=== PATIENT | female | born 1995 | race Two or more races ===

== ENCOUNTER → 2019-02-26 | Outpatient (CLI) | payer OTHER ==
[~2019-02-26] VITALS: Ht 152.4 cm; Wt 75.3 kg
== END | disposition home or self-care (01) ==
LOC: ECT 11:03
DX: F32.3 Major depressive disorder, single episode, severe with psychotic features (principal); F41.1 Generalized anxiety disorder; Z79.899 Other long term (current) drug therapy

== ENCOUNTER 2019-02-28 04:47 | Outpatient (RCR) | payer OTHER ==
[~2019-02-28] VITALS: Ht 153 cm; Wt 75.3 kg
[2019-02-28] MEDS ORDERED: SUMAtriptan 6mg/0.5ml Inj SUBQ ONE ×2 (04:48→06:00)
[2019-02-28] MEDS ORDERED: Methohexital Sodium 500mg Vial IVP ONE (04:48)
[2019-02-28] MEDS ORDERED: Ketorolac 60mg Inj IM ONE (04:48)
[2019-02-28] MEDS ORDERED: Midazolam 2mg/2ml Inj ONE ×2 (04:48→06:00)
[2019-02-28] MEDS ORDERED: NS 500ML ONE ×2 (04:48→06:00)
[2019-02-28] MEDS ORDERED: Succinylcholine 20mg/ml 10ml vial ONE ×2 (04:48→06:00)
[2019-02-28] MEDS ORDERED: Methohexital Sodium Syr 100mg/10ml IVP ONE (06:00)
[2019-02-28 09:29] VITALS: BP 123/95
[2019-02-28 09:43] VITALS: BP 129/84
[2019-02-28 09:48] VITALS: BP 123/65
[2019-02-28 09:53] VITALS: BP 122/63
[2019-02-28 09:58] VITALS: BP 125/71
[2019-02-28 11:21] VITALS: BP 123/95
[2019-03-02] MEDS ORDERED: Methohexital Sodium Syr 100mg/10ml IVP ONE (06:00)
[2019-03-02] MEDS ORDERED: NS 500ML ONE (06:00)
[2019-03-02] MEDS ORDERED: Ketorolac 30mg Inj ONE (06:00)
[2019-03-02] MEDS ORDERED: SUMAtriptan 6mg/0.5ml Inj SUBQ ONE (06:00)
[2019-03-02] MEDS ORDERED: Succinylcholine 20mg/ml 10ml vial ONE (06:00)
[2019-03-02] MEDS ORDERED: Midazolam 2mg/2ml Inj ONE (06:00)
[2019-03-02 08:57] VITALS: BP 117/76
[2019-03-02 09:10] VITALS: BP 130/75
[2019-03-02 09:15] VITALS: BP 120/46
[2019-03-02 09:20] VITALS: BP 120/54
[2019-03-02 09:25] VITALS: BP 118/79
[2019-03-05] MEDS ORDERED: NS 500ML ONE ×2 (08:00→09:00)
[2019-03-05] MEDS ORDERED: Methohexital Sodium Syr 100mg/10ml IVP ONE ×2 (08:00→09:00)
[2019-03-05] MEDS ORDERED: Ketorolac 60mg Inj IM ONE (08:00)
[2019-03-05] MEDS ORDERED: SUMAtriptan 6mg/0.5ml Inj SUBQ ONE (08:00)
[2019-03-05] MEDS ORDERED: Midazolam 2mg/2ml Inj ONE (08:00)
[2019-03-05] MEDS ORDERED: Succinylcholine 20mg/ml 10ml vial ONE ×2 (08:00→09:00)
[2019-03-05 09:45] VITALS: BP 115/68
[2019-03-05 09:59] VITALS: BP 134/73
[2019-03-05 10:04] VITALS: BP 126/57
[2019-03-05 10:09] VITALS: BP 129/54
[2019-03-05 10:14] VITALS: BP 124/58
[2019-03-07] MEDS ORDERED: Ketorolac 60mg Inj IM ONE (09:00)
[2019-03-07] MEDS ORDERED: Methohexital Sodium Syr 100mg/10ml IVP ONE (09:00)
[2019-03-07] MEDS ORDERED: NS 500ML ONE (09:00)
[2019-03-07] MEDS ORDERED: Midazolam 2mg/2ml Inj ONE (09:00)
[2019-03-07] MEDS ORDERED: Succinylcholine 20mg/ml 10ml vial ONE (09:00)
[2019-03-07] MEDS ORDERED: SUMAtriptan 6mg/0.5ml Inj SUBQ ONE (09:00)
[2019-03-07 09:37] VITALS: BP 110/69
[2019-03-07 09:55] VITALS: BP 135/73
[2019-03-07 10:00] VITALS: BP 136/77
[2019-03-07 10:05] VITALS: BP 125/63
[2019-03-07 10:10] VITALS: BP 119/55
[2019-03-09 09:16] VITALS: BP 108/70
[2019-03-09 09:35] VITALS: BP 116/82
[2019-03-09 09:40] VITALS: BP 119/70
[2019-03-09 09:45] VITALS: BP 114/64
[2019-03-09 09:50] VITALS: BP 117/66
[2019-03-12] MEDS ORDERED: NS 500ML ONE (06:00)
[2019-03-12] MEDS ORDERED: Midazolam 2mg/2ml Inj ONE (06:00)
[2019-03-12] MEDS ORDERED: Ketorolac 60mg Inj IM ONE (06:00)
[2019-03-12] MEDS ORDERED: SUMAtriptan 6mg/0.5ml Inj SUBQ ONE (06:00)
[2019-03-12] MEDS ORDERED: Methohexital Sodium Syr 100mg/10ml IVP ONE (06:00)
[2019-03-12] MEDS ORDERED: Succinylcholine 20mg/ml 10ml vial ONE (06:00)
[2019-03-12 09:54] VITALS: BP 108/69
[2019-03-12 10:05] VITALS: BP 136/68
[2019-03-12 10:10] VITALS: BP 126/67
[2019-03-12 10:15] VITALS: BP 116/67
[2019-03-12 10:20] VITALS: BP 116/72
[2019-03-13] MEDS ORDERED: NS 500ML ONE (06:00)
[2019-03-13] MEDS ORDERED: Midazolam 2mg/2ml Inj ONE (06:00)
[2019-03-13] MEDS ORDERED: Ketorolac 60mg Inj IM ONE (06:00)
[2019-03-13] MEDS ORDERED: Methohexital Sodium Syr 100mg/10ml IVP ONE (06:00)
[2019-03-13] MEDS ORDERED: SUMAtriptan 6mg/0.5ml Inj SUBQ ONE (06:00)
[2019-03-13] MEDS ORDERED: Succinylcholine 20mg/ml 10ml vial ONE (06:00)
[2019-03-14] MEDS ORDERED: NS 500ML ONE (06:00)
[2019-03-14] MEDS ORDERED: Midazolam 2mg/2ml Inj ONE (06:00)
[2019-03-14] MEDS ORDERED: Ketorolac 60mg Inj IM ONE (06:00)
[2019-03-14] MEDS ORDERED: Succinylcholine 20mg/ml 10ml vial ONE (06:00)
[2019-03-14] MEDS ORDERED: Methohexital Sodium Syr 100mg/10ml IVP ONE (06:00)
[2019-03-14] MEDS ORDERED: SUMAtriptan 6mg/0.5ml Inj SUBQ ONE (06:00)
[2019-03-14 09:57] VITALS: BP 111/60
[2019-03-14 10:15] VITALS: BP 126/68
[2019-03-14 10:20] VITALS: BP 126/68
[2019-03-14 10:25] VITALS: BP 120/45
[2019-03-14 10:30] VITALS: BP 124/63
== END 2019-03-14 | disposition home or self-care (01) ==
LOC: ECT 04:47
DX: F32.3 Major depressive disorder, single episode, severe with psychotic features (principal)
CPT/HCPCS: 90870; J0330; J1885; J2250; J3030; J3490; J7040

== ENCOUNTER 2019-03-16 09:35 | Outpatient (RCR) | payer OTHER ==
[~2019-03-16] VITALS: Ht 152.4 cm; Wt 75.3 kg
[2019-03-16 09:15] VITALS: BP 107/65
[2019-03-16 09:30] VITALS: BP 129/72
[2019-03-16 09:35] VITALS: BP 126/79
[2019-03-16] MEDS ORDERED: SUMAtriptan 6mg/0.5ml Inj SUBQ ONE ×2 (09:36)
[2019-03-16] MEDS ORDERED: NS 500ML ONE ×2 (09:36)
[2019-03-16] MEDS ORDERED: Succinylcholine 20mg/ml 10ml vial ONE ×2 (09:36)
[2019-03-16] MEDS ORDERED: Methohexital Sodium Syr 100mg/10ml IVP ONE ×2 (09:36)
[2019-03-16] MEDS ORDERED: Midazolam 2mg/2ml Inj ONE ×2 (09:36)
[2019-03-16] MEDS ORDERED: Ketorolac 60mg Inj IM ONE ×2 (09:36)
[2019-03-16 09:40] VITALS: BP 131/65
[2019-03-16 09:45] VITALS: BP 122/67
[2019-03-19] MEDS ORDERED: Ketorolac 30mg Inj ONE (06:00)
[2019-03-19] MEDS ORDERED: Midazolam 2mg/2ml Inj ONE (06:00)
[2019-03-19] MEDS ORDERED: SUMAtriptan 6mg/0.5ml Inj SUBQ ONE (06:00)
[2019-03-19] MEDS ORDERED: Methohexital Sodium Syr 100mg/10ml IVP ONE (06:00)
[2019-03-19] MEDS ORDERED: NS 500ML ONE (06:00)
[2019-03-19] MEDS ORDERED: Succinylcholine 20mg/ml 10ml vial ONE (06:00)
[2019-03-19 09:22] VITALS: BP 110/63
[2019-03-19 09:40] VITALS: BP 126/67
[2019-03-19 09:45] VITALS: BP 131/72
[2019-03-19 09:50] VITALS: BP 139/86
[2019-03-19 09:55] VITALS: BP 134/72
[2019-03-23 09:16] VITALS: BP 101/59
[2019-03-23 09:29] VITALS: BP 128/73
[2019-03-23 09:34] VITALS: BP 127/72
[2019-03-23 09:39] VITALS: BP 122/72
[2019-03-23 09:44] VITALS: BP 125/63
[2019-03-30 08:35] VITALS: BP 110/68
[2019-03-30 08:55] VITALS: BP_SYST 128; BP_SYST 137; BP_DIAS 72; BP_DIAS 77
[2019-03-30 09:00] VITALS: BP 130/84
[2019-03-30 09:05] VITALS: BP 135/75
[2019-04-06] MEDS ORDERED: Ketorolac 60mg Inj IM ONE (08:00)
[2019-04-06] MEDS ORDERED: NS 500ML ONE (08:00)
[2019-04-06] MEDS ORDERED: Methohexital Sodium Syr 100mg/10ml IVP ONE (08:00)
[2019-04-06] MEDS ORDERED: Succinylcholine 20mg/ml 10ml vial ONE (08:00)
[2019-04-06] MEDS ORDERED: Midazolam 2mg/2ml Inj ONE (08:00)
[2019-04-06] MEDS ORDERED: SUMAtriptan 6mg/0.5ml Inj SUBQ ONE (08:00)
[2019-04-06 09:53] VITALS: BP 108/66
[2019-04-06 10:10] VITALS: BP 140/53
[2019-04-06 10:15] VITALS: BP 130/76
[2019-04-06 10:20] VITALS: BP 112/65
[2019-04-06 10:25] VITALS: BP 124/69
== END 2019-04-14 | disposition home or self-care (01) ==
LOC: ECT 09:35
DX: F32.3 Major depressive disorder, single episode, severe with psychotic features (principal)
CPT/HCPCS: 90870; J0330; J1885; J2250; J2405; J3030; J7040

== ENCOUNTER 2019-04-18 11:37 | Outpatient (RCR) | payer OTHER ==
[~2019-04-18] VITALS: Ht 152.4 cm; Wt 75.3 kg
[~2019-04-18 11:37] MED LIST: Ketorolac 30mg Inj ONE; Methohexital Sodium Syr 100mg/10ml IVP ONE; Midazolam 2mg/2ml Inj ONE; NS 500ML ONE; SUMAtriptan 6mg/0.5ml Inj SUBQ ONE; Succinylcholine 20mg/ml 10ml vial ONE
[2019-04-18 11:42] VITALS: BP 104/67
[2019-04-18 12:00] VITALS: BP 129/85
[2019-04-18 12:05] VITALS: BP 130/74
[2019-04-18 12:10] VITALS: BP 125/64
[2019-04-18 12:15] VITALS: BP 115/65
[2019-05-14] MEDS ORDERED: Methohexital Sodium Syr 100mg/10ml IVP ONE (06:00)
[2019-05-14] MEDS ORDERED: Succinylcholine 20mg/ml 10ml vial ONE (06:00)
[2019-05-14] MEDS ORDERED: Midazolam 2mg/2ml Inj ONE (06:00)
[2019-05-14] MEDS ORDERED: Ketorolac 30mg Inj ONE (06:00)
[2019-05-14] MEDS ORDERED: NS 500ML ONE (06:00)
[2019-05-14] MEDS ORDERED: SUMAtriptan 6mg/0.5ml Inj SUBQ ONE (06:00)
[2019-05-14 09:47] VITALS: BP 105/66
[2019-05-14 10:00] VITALS: BP 122/69
[2019-05-14 10:05] VITALS: BP 126/68
[2019-05-14 10:10] VITALS: BP 117/58
[2019-05-14 10:15] VITALS: BP 116/62
== END 2019-05-14 | disposition home or self-care (01) ==
LOC: ECT 11:37
DX: F32.3 Major depressive disorder, single episode, severe with psychotic features (principal)
CPT/HCPCS: 90870; J0330; J1885; J2250; J2405; J3030; J7040

== ENCOUNTER 2019-06-04 05:11 | Outpatient (RCR) | payer OTHER ==
[~2019-06-04] VITALS: Ht 152.4 cm; Wt 75.3 kg
[2019-06-04] MEDS ORDERED: Midazolam 2mg/2ml Inj ONE (05:12)
[2019-06-04] MEDS ORDERED: SUMAtriptan 6mg/0.5ml Inj SUBQ ONE (05:12)
[2019-06-04] MEDS ORDERED: Succinylcholine 20mg/ml 10ml vial ONE (05:12)
[2019-06-04] MEDS ORDERED: Methohexital Sodium Syr 100mg/10ml IVP ONE (05:12)
[2019-06-04] MEDS ORDERED: Ketorolac 60mg Inj IM ONE (05:12)
[2019-06-08 09:00] VITALS: BP 113/70
[2019-06-08 09:12] VITALS: BP 116/72
[2019-06-08 09:17] VITALS: BP 109/53
[2019-06-08 09:22] VITALS: BP 123/68
[2019-06-08 09:27] VITALS: BP 120/67
== END 2019-06-14 | disposition home or self-care (01) ==
LOC: ECT 05:11
DX: F32.3 Major depressive disorder, single episode, severe with psychotic features (principal)
CPT/HCPCS: 90870; J0330; J2250; J2405; J3030

== ENCOUNTER 2019-06-29 05:00 | Outpatient (RCR) | payer OTHER ==
[~2019-06-29] VITALS: Ht 30.5 cm; Wt 0.5 kg
[2019-06-29] MEDS ORDERED: Ketorolac 60mg Inj IM ONE (05:01)
[2019-06-29] MEDS ORDERED: Esmolol 100mg/10ml Inj ONE (05:01)
[2019-06-29] MEDS ORDERED: NS 500ML ONE (05:01)
[2019-06-29] MEDS ORDERED: Succinylcholine 20mg/ml 10ml vial ONE (05:01)
[2019-06-29] MEDS ORDERED: SUMAtriptan 6mg/0.5ml Inj SUBQ ONE (05:01)
[2019-06-29] MEDS ORDERED: Midazolam 2mg/2ml Inj ONE (05:01)
[2019-06-29 10:34] VITALS: BP 112/68
[2019-06-29 10:50] VITALS: BP 125/66
[2019-06-29 10:55] VITALS: BP 128/70
[2019-06-29 11:00] VITALS: BP 120/59
[2019-06-29 11:05] VITALS: BP 128/68
== END 2019-07-14 | disposition home or self-care (01) ==
LOC: ECT 05:00
DX: F32.3 Major depressive disorder, single episode, severe with psychotic features (principal)
CPT/HCPCS: 90870; J0330; J2250; J2405; J3030; J7040

== ENCOUNTER 2019-07-23 05:11 | Outpatient (RCR) | payer OTHER | END 2019-08-14 | disposition home or self-care (01) | LOC: ECT 05:11 | DX: Z53.9 Procedure and treatment not carried out, unspecified reason (principal) ==

== ENCOUNTER 2019-11-21 05:11 | Outpatient (RCR) | payer OTHER ==
[~2019-11-21] VITALS: Ht 152.4 cm; Wt 75.3 kg
[2019-11-21] MEDS ORDERED: Ketorolac 60mg Inj IM ONE ×3 (05:12)
[2019-11-21] MEDS ORDERED: SUMAtriptan 6mg/0.5ml Inj SUBQ ONE ×3 (05:12)
[2019-11-21] MEDS ORDERED: Succinylcholine 20mg/ml 10ml vial ONE ×3 (05:12)
[2019-11-21] MEDS ORDERED: Methohexital Sodium Syr 100mg/10ml IVP ONE ×3 (05:12)
[2019-11-21] MEDS ORDERED: Glycopyrrolate 0.2mg/ml 1ml Vial ONE (05:12)
[2019-11-21] MEDS ORDERED: Midazolam 2mg/2ml Inj ONE ×3 (05:12)
[2019-11-21] MEDS ORDERED: NS 500ML ONE ×3 (05:12)
[2019-11-21 10:32] VITALS: BP 115/68
[2019-11-21 10:50] VITALS: BP 122/51
[2019-11-21 10:55] VITALS: BP 115/51
[2019-11-21 11:00] VITALS: BP 120/53
[2019-11-21 11:05] VITALS: BP 122/59
[2019-11-23 09:55] VITALS: BP 115/77
[2019-11-23 10:15] VITALS: BP 112/51
[2019-11-23 10:20] VITALS: BP 113/67
[2019-11-23 10:25] VITALS: BP 114/58
[2019-11-23 10:30] VITALS: BP 121/56
[2019-11-30 10:29] VITALS: BP 120/79
[2019-11-30 10:46] VITALS: BP 131/74
[2019-11-30 10:51] VITALS: BP 136/65
[2019-11-30 10:56] VITALS: BP 132/64
[2019-11-30 11:01] VITALS: BP 130/71
[2019-12-03] MEDS ORDERED: Succinylcholine 20mg/ml 10ml vial ONE (08:00)
[2019-12-03] MEDS ORDERED: NS 500ML ONE (08:00)
[2019-12-03] MEDS ORDERED: Methohexital Sodium Syr 100mg/10ml IVP ONE (08:00)
[2019-12-03] MEDS ORDERED: Midazolam 2mg/2ml Inj ONE (08:00)
[2019-12-03] MEDS ORDERED: SUMAtriptan 6mg/0.5ml Inj SUBQ ONE (08:00)
[2019-12-03] MEDS ORDERED: Ketorolac 60mg Inj IM ONE (08:00)
[2019-12-03] MEDS ORDERED: Glycopyrrolate 0.2mg/ml 1ml Vial ONE (08:00)
[2019-12-03 11:03] VITALS: BP 121/76
[2019-12-03 11:24] VITALS: BP 125/60
[2019-12-03 11:29] VITALS: BP 117/57
[2019-12-03 11:34] VITALS: BP 124/41
[2019-12-03 11:39] VITALS: BP 117/58
[2019-12-05] MEDS ORDERED: Methohexital Sodium Syr 100mg/10ml IVP ONE (06:00)
[2019-12-05] MEDS ORDERED: Ketorolac 60mg Inj IM ONE (06:00)
[2019-12-05] MEDS ORDERED: Succinylcholine 20mg/ml 10ml vial ONE (06:00)
[2019-12-05] MEDS ORDERED: NS 500ML ONE (06:00)
[2019-12-05] MEDS ORDERED: SUMAtriptan 6mg/0.5ml Inj SUBQ ONE (06:00)
[2019-12-05] MEDS ORDERED: Midazolam 2mg/2ml Inj ONE (06:00)
[2019-12-05] MEDS ORDERED: Glycopyrrolate 0.2mg/ml 1ml Vial ONE (06:00)
[2019-12-05 10:37] VITALS: BP 116/73
[2019-12-05 10:53] VITALS: BP 123/62
[2019-12-05 10:58] VITALS: BP 118/63
[2019-12-05 11:03] VITALS: BP 129/65
[2019-12-05 11:08] VITALS: BP 121/61
[2019-12-07] MEDS ORDERED: Ketorolac 30mg Inj ONE (06:00)
[2019-12-07] MEDS ORDERED: Midazolam 2mg/2ml Inj ONE (06:00)
[2019-12-07] MEDS ORDERED: NS 500ML ONE (06:00)
[2019-12-07] MEDS ORDERED: Methohexital Sodium Syr 100mg/10ml IVP ONE (06:00)
[2019-12-07] MEDS ORDERED: Succinylcholine 20mg/ml 10ml vial ONE (06:00)
[2019-12-07] MEDS ORDERED: Glycopyrrolate 0.2mg/ml 1ml Vial ONE (06:00)
[2019-12-07] MEDS ORDERED: SUMAtriptan 6mg/0.5ml Inj SUBQ ONE (06:00)
[2019-12-07 09:24] VITALS: BP 132/76
[2019-12-07 09:38] VITALS: BP 137/68
[2019-12-07 09:43] VITALS: BP 137/54
[2019-12-07 09:48] VITALS: BP 129/64
[2019-12-07 09:53] VITALS: BP 134/62
[2019-12-10] MEDS ORDERED: Midazolam 2mg/2ml Inj ONE (06:00)
[2019-12-10] MEDS ORDERED: Glycopyrrolate 0.2mg/ml 1ml Vial ONE (06:00)
[2019-12-10] MEDS ORDERED: SUMAtriptan 6mg/0.5ml Inj SUBQ ONE (06:00)
[2019-12-10] MEDS ORDERED: Succinylcholine 20mg/ml 10ml vial ONE (06:00)
[2019-12-10] MEDS ORDERED: Methohexital Sodium Syr 100mg/10ml IVP ONE (06:00)
[2019-12-10] MEDS ORDERED: NS 500ML ONE (06:00)
[2019-12-10] MEDS ORDERED: Ketorolac 60mg Inj IM ONE (06:00)
[2019-12-10 10:35] VITALS: BP 123/75
[2019-12-10 10:48] VITALS: BP 143/93
[2019-12-10 10:53] VITALS: BP 129/62
[2019-12-10 10:58] VITALS: BP 129/62
[2019-12-10 11:02] VITALS: BP 135/65
[2019-12-12] MEDS ORDERED: NS 500ML ONE (07:00)
[2019-12-12] MEDS ORDERED: Glycopyrrolate 0.2mg/ml 1ml Vial ONE (07:00)
[2019-12-12] MEDS ORDERED: Succinylcholine 20mg/ml 10ml vial ONE (07:00)
[2019-12-12] MEDS ORDERED: SUMAtriptan 6mg/0.5ml Inj SUBQ ONE (07:00)
[2019-12-12] MEDS ORDERED: Ketorolac 60mg Inj IM ONE (07:00)
[2019-12-12] MEDS ORDERED: Methohexital Sodium Syr 100mg/10ml IVP ONE (07:00)
[2019-12-12] MEDS ORDERED: Midazolam 2mg/2ml Inj ONE (07:00)
[2019-12-12 10:35] VITALS: BP 121/77
[2019-12-12] MEDS ORDERED: Atropine Sulfate 0.4mg/ml inj IVP PRN (10:57)
[2019-12-12] MEDS ORDERED: Lidocaine 2% 100mg/5ml Carp IV PRN (10:57)
[2019-12-12 11:00] VITALS: BP 127/55
[2019-12-12 11:05] VITALS: BP 121/69
[2019-12-12 11:10] VITALS: BP 129/69
[2019-12-12 11:15] VITALS: BP 131/54
== END 2019-12-13 | disposition home or self-care (01) ==
LOC: ECT 05:11
DX: F32.3 Major depressive disorder, single episode, severe with psychotic features (principal)
CPT/HCPCS: 90870; J0330; J1885; J2250; J2405; J3030; J7040

== ENCOUNTER 2019-12-14 05:59 | Outpatient (RCR) | payer OTHER ==
[~2019-12-14] VITALS: Ht 30.5 cm; Wt 0.5 kg
[2019-12-17] MEDS ORDERED: NS 500ML ONE (06:00)
[2019-12-17] MEDS ORDERED: Methohexital Sodium Syr 100mg/10ml IVP ONE (06:00)
[2019-12-17] MEDS ORDERED: SUMAtriptan 6mg/0.5ml Inj SUBQ ONE (06:00)
[2019-12-17] MEDS ORDERED: Ketorolac 60mg Inj IM ONE (06:00)
[2019-12-17] MEDS ORDERED: Succinylcholine 20mg/ml 10ml vial ONE (06:00)
[2019-12-17] MEDS ORDERED: Glycopyrrolate 0.2mg/ml 1ml Vial ONE (06:00)
[2019-12-17] MEDS ORDERED: Midazolam 2mg/2ml Inj ONE (06:00)
[2019-12-17 10:24] VITALS: BP 128/72
[2019-12-17 10:39] VITALS: BP 151/96
[2019-12-17] MEDS ORDERED: Lidocaine 2% 100mg/5ml Carp IV PRN (10:39)
[2019-12-17] MEDS ORDERED: Atropine Sulfate 0.4mg/ml inj IVP PRN (10:39)
[2019-12-17 10:44] VITALS: BP 136/74
[2019-12-17 10:49] VITALS: BP 135/73
[2019-12-17 10:54] VITALS: BP 133/60
[2019-12-28] MEDS ORDERED: Succinylcholine 20mg/ml 10ml vial ONE (09:00)
[2019-12-28] MEDS ORDERED: SUMAtriptan 6mg/0.5ml Inj SUBQ ONE (09:00)
[2019-12-28] MEDS ORDERED: Midazolam 2mg/2ml Inj ONE (09:00)
[2019-12-28] MEDS ORDERED: Glycopyrrolate 0.2mg/ml 1ml Vial ONE (09:00)
[2019-12-28] MEDS ORDERED: Ketorolac 60mg Inj IM ONE (09:00)
[2019-12-28] MEDS ORDERED: NS 500ML ONE (09:00)
[2019-12-28 09:36] VITALS: BP 109/68
[2019-12-28 09:50] VITALS: BP 123/57
[2019-12-28 09:55] VITALS: BP 119/59
[2019-12-28 10:00] VITALS: BP 123/58
[2019-12-28 10:05] VITALS: BP 124/60
[2019-12-31] MEDS ORDERED: Glycopyrrolate 0.2mg/ml 1ml Vial ONE (08:00)
[2019-12-31] MEDS ORDERED: Succinylcholine 20mg/ml 10ml vial ONE (08:00)
[2019-12-31] MEDS ORDERED: Ketorolac 60mg Inj IM ONE (08:00)
[2019-12-31] MEDS ORDERED: SUMAtriptan 6mg/0.5ml Inj SUBQ ONE (08:00)
[2019-12-31] MEDS ORDERED: NS 500ML ONE (08:00)
[2019-12-31] MEDS ORDERED: Midazolam 2mg/2ml Inj ONE (08:00)
[2019-12-31] MEDS ORDERED: Methohexital Sodium Syr 100mg/10ml IVP ONE (08:00)
[2020-01-02 10:37] VITALS: BP 108/67
[2020-01-02] MEDS ORDERED: Lidocaine 2% 100mg/5ml Carp IV PRN (10:58)
[2020-01-02] MEDS ORDERED: Atropine Sulfate 0.4mg/ml inj IVP PRN (10:58)
[2020-01-02 11:00] VITALS: BP 118/43
[2020-01-02 11:05] VITALS: BP 129/51
[2020-01-02 11:10] VITALS: BP 129/61
[2020-01-02 11:15] VITALS: BP 130/59
== END 2020-01-13 | disposition home or self-care (01) ==
LOC: ECT 05:59
DX: F32.3 Major depressive disorder, single episode, severe with psychotic features (principal)
CPT/HCPCS: 90870; J0330; J2250; J2405; J3030; J7040